=== PATIENT | male | born 1935 | race Caucasian/White ===

== ENCOUNTER → 2018-03-11 | Outpatient (CLI) | payer MEDICARE ==
[~2018-03-11] MED LIST: ALLO300T2 PO; ASPI-555 PO; FISH1CAP49 PO; HYDR-4060 PO; KEPRA PO; PRAV40TA3 PO; PRED10TA3 PO; PSYLLIUM PO; VITAMIN B COMPLEX PO; [UNRECOGNIZED DRUG - OTHER] PO; coq10 PO; iron PO; metoprolol er PO
== END | disposition home or self-care (01) ==
LOC: SHCH 07:55
PROVIDERS: ATTEND Internal Medicine Cardiovascular Disease
DX: I71.4 Abdominal aortic aneurysm, without rupture (principal); I70.1 Atherosclerosis of renal artery; K55.1 Chronic vascular disorders of intestine
CPT/HCPCS: 93975

== ENCOUNTER 2019-03-06 12:25 | Inpatient (IN) | payer MEDICARE, OTHER ==
[~2019-03-06] VITALS: Ht 175.3 cm; Wt 83.5 kg
[2019-03-06 12:57] LABS: APPEARANCE,URINE Clear (CLEAR); BILIRUBIN,URINE Negative (NEGATIVE); COLOR,URINE Yellow (YELLOW); GLUCOSE, URINE (UA) Negative (NEGATIVE); KETONES,URINE Negative (NEGATIVE); LEUKOCYTE ESTERASE ,URINE Negative (NEGATIVE); NITRATE,URINE Negative (NEGATIVE); OCCULT BLOOD,URINE Negative (NEGATIVE); PH,URINE 6.5 (5.0-8.0); PROTEIN,URINE POS 1+ mg/dL (NEGATIVE); UROBILINOGEN,URINE 0.2 mg/dL (0.2-1.0)
[2019-03-06 13:05] LABS: BASOPHILS % (AUTO) 0.6 % (0.0-5.0); EOSINOPHILS % (AUTO) 1.1 % (0.0-8.0); HEMATOCRIT 42.9 % (42-54); LYMPHOCYTES % (AUTO) 7.4 % (21.0-51.0); MEAN CORPUSCULAR HEMOGLOBIN 34.2 pg (27.0-33.0); MEAN CORPUSCULAR HGB CONC 33.7 g/dL (32.0-36.0); MEAN CORPUSCULAR VOLUME 101.4 fL (79-99); MONOCYTES % (AUTO) 12.4 % (3.0-13.0); NEUTROPHILS % (AUTO) 78.5 % (40.0-77.0); PLATELET COUNT (AUTO) 136 K/uL (130-400); RED BLOOD CELL COUNT(AUTO) 4.23 MIL/uL (4.50-6.20); RED CELL DISTRIBUTION WIDTH 15.4 % (11.0-15.5); WHITE BLOOD COUNT (AUTO) 19.1 K/uL (4.8-10.8)
[2019-03-06] MEDS ORDERED: SODIUM CHLORIDE 0.9% 1000ML 1,000 ML IV ONE (13:05)
[2019-03-06 13:22] LABS: PARTIAL THROMBOPLASTIN TIME 29.5 SEC (26.3-35.5); PROTHROMBIN TIME 10.5 SEC (9.6-11.6)
[2019-03-06 13:37] LABS: ALBUMIN 3.3 g/dL (3.5-5.0); BILIRUBIN,TOTAL 1.1 mg/dL (0.2-1.0); POTASSIUM 4.1 mmol/L (3.5-5.1); TOTAL PROTEIN, SERUM 7.7 g/dL (6.0-8.3)
[2019-03-06 14:29] LABS: BACTERIA,URINE Rare /HPF (None Seen); RBC,URINE 0-1 /HPF (0-1); SQUAMOUS EPITHELIAL CELL,UR Rare /HPF (0-2); WBC,URINE 0-1 /HPF (0-1)
[2019-03-06 14:30] LABS: CREATININE 1.7 mg/dL (0.5-1.5)
[2019-03-06] MEDS ORDERED: IOHEXOL-350 75 ML VIAL IV ONE (14:56)
[2019-03-06] MEDS ORDERED: HYOSCYAMINE SULFATE 0.125 MG TAB.SUBL SL ONE (15:18)
[2019-03-06] MEDS: CEFTRIAXONE SODIUM 1 GM IV SCH (16:00)
[2019-03-06] MEDS: METRONIDAZOLE 500MG/100ML BAG 100 ML IV SCH ×2 (16:00→23:29)
[2019-03-06] MEDS: LACTATED RINGERS 1000ML 1,000 ML IV SCH (16:15)
[2019-03-06] MEDS ORDERED: ENOXAPARIN SODIUM 40 MG/0.4 ML SYRINGE SQ ONE (16:30)
[2019-03-06] MEDS ORDERED: HYDROCODONE/ACETAMINOPHEN 5/325 MG TAB ONE (16:31)
[2019-03-06] MEDS ORDERED: METRONIDAZOLE 500MG/100ML BAG 100 ML ONE (16:31)
[2019-03-06] MEDS ORDERED: CEFTRIAXONE SODIUM 1 GM ONE (16:31)
[2019-03-06] MEDS ORDERED: LACTATED RINGERS 1000ML 1,000 ML IV ONE (16:32)
[2019-03-06] MEDS ORDERED: SODIUM CHLORIDE 0.9% 100 ML IV ONE (16:32)
[2019-03-06 17:40] VITALS: BP 158/88
--- NOTE | 2019-03-06 18:05 | NUR ---
REPORT RECEIVED FROM BRIGITTE ABREU (ED). PATIENT WITH C/O EPIGASTRIC PAIN FOR 2 DAYS. PATIENT ADMITTED UNDER DR. ACUÑA FOR BILIARY COLIC WITH POSSIBLE CHOLECYSTITIS. DR. DENNIS ON THE CASE AND MADE AWARE BY ER PHYSICIAN. ROCEPHIN AND FLAGYL STARTED IN ER. PATIENT AAOX4, STABLE AT THIS TIME.
[2019-03-06] MEDS: HYDROCODONE/ACETAMINOPHEN 5/325 MG TAB PO PRN (18:21)
[2019-03-06 20:00] VITALS: BP 142/76
[2019-03-06] MEDS ORDERED: AMLO10TA7 PO (20:28)
[2019-03-06 22:08] LABS: BASOPHILS % (AUTO) 0.7 % (0.0-5.0); EOSINOPHILS % (AUTO) 1.6 % (0.0-8.0); HEMATOCRIT 38.4 % (42-54); LYMPHOCYTES % (AUTO) 8.5 % (21.0-51.0); MEAN CORPUSCULAR HEMOGLOBIN 34.6 pg (27.0-33.0); MEAN CORPUSCULAR HGB CONC 34.3 g/dL (32.0-36.0); MEAN CORPUSCULAR VOLUME 100.6 fL (79-99); MONOCYTES % (AUTO) 12.3 % (3.0-13.0); NEUTROPHILS % (AUTO) 76.9 % (40.0-77.0); NUCLEATED RED BLOOD CELLS 0.1 % (0.0-0.19); PLATELET COUNT (AUTO) 118 K/uL (130-400); RED BLOOD CELL COUNT(AUTO) 3.82 MIL/uL (4.50-6.20); RED CELL DISTRIBUTION WIDTH 15.2 % (11.0-15.5); WHITE BLOOD COUNT (AUTO) 17.1 K/uL (4.8-10.8)
[2019-03-06 22:24] LABS: ALBUMIN 2.8 g/dL (3.5-5.0); BILIRUBIN,TOTAL 1.1 mg/dL (0.2-1.0); CREATININE 1.6 mg/dL (0.5-1.5); POTASSIUM 4.3 mmol/L (3.5-5.1); TOTAL PROTEIN, SERUM 6.4 g/dL (6.0-8.3)
[2019-03-06] MEDS: METOPROLOL TARTRATE 25 MG TAB PO SCH (23:32)
[2019-03-06] MEDS: ATORVASTATIN CALCIUM 10 MG TABLET PO SCH (23:32)
[2019-03-07 00:02] VITALS: BP 152/89
[2019-03-07] MEDS: HYDROCODONE/ACETAMINOPHEN 5/325 MG TAB PO PRN ×3 (00:26→19:54)
[2019-03-07] MEDS: CEFTRIAXONE SODIUM 1 GM IV SCH ×2 (02:49→16:06)
[2019-03-07] MEDS: LACTATED RINGERS 1000ML 1,000 ML IV SCH ×2 (02:50→18:55)
[2019-03-07 04:00] VITALS: BP 141/86
[2019-03-07] MEDS: METRONIDAZOLE 500MG/100ML BAG 100 ML IV SCH ×2 (04:52→16:05)
--- NOTE | 2019-03-07 07:51 | NUR ---
dr. fowler in to see pt. orders entered.
--- NOTE | 2019-03-07 07:54 | NUR ---
AM SHIFT ASSESSMENT. HIDA SCAN ORDERED, WILL KEEP PT. NPO.
[2019-03-07 08:00] VITALS: BP 150/90
[2019-03-07] MEDS: METOPROLOL TARTRATE 25 MG TAB PO SCH ×2 (09:00→19:53)
[2019-03-07] MEDS: AMLODIPINE BESYLATE 5 MG TAB PO SCH (09:00)
[2019-03-07] MEDS: ALLOPURINOL 300 MG TABLET PO SCH (09:00)
[2019-03-07] MEDS: ENOXAPARIN SODIUM 40 MG/0.4 ML SYRINGE SQ SCH (09:00)
[2019-03-07] MEDS: FAMOTIDINE 20MG TAB 20 MG TAB PO SCH (09:00)
[2019-03-07 11:45] VITALS: BP 141/73
[2019-03-07] MEDS ORDERED: DEXTROSE 5 % AND 0.9 % NACL 1,000 ML IV ONE (12:33)
--- NOTE | 2019-03-07 16:07 | NUR ---
DCP CM met with pt discussed dc plans. Pt is independent prior to admission, lives at home with a friend Adelaide Noonan. Denies any equipments/services. Feels safe to go back home, still drives, arranges own needs, verbalized friend Adelaide able to assist with transportation and needs as necessary. DC plan to home once stable. CM to cont to follow up. Addendum: 03/07/19 at 1609 by TESS SAMAYOA LVN CM Amended: Links added.
--- NOTE | 2019-03-07 16:08 | NUR ---
TO RAD. DEPT NOW VIA W/C FOR HIDA SCAN
[2019-03-07 16:12] VITALS: BP 117/63
--- NOTE | 2019-03-07 18:00 | NUR ---
BACK ROM RAD.DEPT. WILL WAIT FOR HIDA SCAN REPORT.
--- NOTE | 2019-03-07 19:00 | NUR ---
DR. ACUÑA HERE, STATES TO FEED PT. NOW AND NPO AT [place]. NOTIFY DR. SONNY ALLEN RESULTS.
[2019-03-07] MEDS: ATORVASTATIN CALCIUM 10 MG TABLET PO SCH (19:53)
[2019-03-07 20:00] VITALS: BP 143/88
[2019-03-08] VITALS: BP 125/72
[2019-03-08] MEDS: METRONIDAZOLE 500MG/100ML BAG 100 ML IV SCH ×3 (00:09→17:01)
[2019-03-08] MEDS ORDERED: DEXTROSE 5 % AND 0.9 % NACL 1,000 ML IV ONE (00:09)
--- NOTE | 2019-03-08 00:15 | NUR ---
patient saturating at 91% room air. oxygen via nasal cannula is offered and he refuses it.
[2019-03-08] MEDS: CEFTRIAXONE SODIUM 1 GM IV SCH ×2 (03:03→17:00)
[2019-03-08] MEDS ORDERED: DEXTROSE 5 % AND 0.9 % NACL 1,000 ML IV SCH (03:15)
[2019-03-08] MEDS: HYDROCODONE/ACETAMINOPHEN 5/325 MG TAB PO PRN ×3 (03:16→19:50)
[2019-03-08 04:00] VITALS: BP 137/68
[2019-03-08 05:14] LABS: HEMATOCRIT 35.2 % (42-54); MEAN CORPUSCULAR HGB CONC 33.9 g/dL (32.0-36.0); MEAN CORPUSCULAR VOLUME 100.2 fL (79-99); PLATELET COUNT (AUTO) 124 K/uL (130-400); RED BLOOD CELL COUNT(AUTO) 3.51 MIL/uL (4.50-6.20); RED CELL DISTRIBUTION WIDTH 15.1 % (11.0-15.5); WHITE BLOOD COUNT (AUTO) 15.6 K/uL (4.8-10.8)
[2019-03-08 05:27] LABS: ALBUMIN 2.4 g/dL (3.5-5.0); BILIRUBIN,TOTAL 0.5 mg/dL (0.2-1.0); CREATININE 1.8 mg/dL (0.5-1.5); EOSINOPHILS % (MANUAL) 2 % (1-6); LYMPHOCYTES % (MANUAL) 6 % (22-44); MONOCYTES % (MANUAL) 2 % (2-9); POTASSIUM 4.1 mmol/L (3.5-5.1); SEGMENTED NEUTROPHILS % 90 % (40-70)
[2019-03-08 05:28] LABS: MAN.DIFF COMMENT-IMPRESSION MANUAL DIFFERENTIAL; PLATELET MORPHOLOGY COMMENT ADEQUATE
[2019-03-08 07:47] VITALS: BP 163/99
--- NOTE | 2019-03-08 08:30 | NUR ---
Paged Dr. Prado to notify of patient's request to speak with her. Per Yaz, no surgery planned. Notified patient that she would be by after clinic.
[2019-03-08] MEDS: ALLOPURINOL 300 MG TABLET PO SCH (08:57)
[2019-03-08] MEDS: FAMOTIDINE 20MG TAB 20 MG TAB PO SCH (08:58)
[2019-03-08] MEDS: AMLODIPINE BESYLATE 5 MG TAB PO SCH (08:58)
[2019-03-08] MEDS: METOPROLOL TARTRATE 25 MG TAB PO SCH ×2 (08:58→19:50)
[2019-03-08] MEDS: ENOXAPARIN SODIUM 40 MG/0.4 ML SYRINGE SQ SCH (08:59)
[2019-03-08 12:54] VITALS: BP 126/85
[2019-03-08] MEDS ORDERED: LEVO500T89 PO (14:32)
[2019-03-08] MEDS ORDERED: METR500T PO (14:32)
[2019-03-08 16:01] VITALS: BP 148/68
--- NOTE | 2019-03-08 19:15 | NUR ---
Patient reported moderate pain to abdomen, such as before after eating regular diet. Dr. Mukherjee discussed treatment plan with patient and recommended patient stay overnight and prepare for possible laparoscopic cholecystectomy 03/09/18 at 14:00. Paged hospitalist on-call to notify of Dr. Mukherjee's recommendation.
[2019-03-08] MEDS: ATORVASTATIN CALCIUM 10 MG TABLET PO SCH (19:50)
[2019-03-08 20:00] VITALS: BP 134/78
[2019-03-08] MEDS ORDERED: DEXTROSE 5%-LACTATED RINGERS 1,000 ML IV SCH (20:30)
[2019-03-09] VITALS (24 sets, daily range): BP systolic 103–156; BP diastolic 60–86
[2019-03-09] MEDS: METRONIDAZOLE 500MG/100ML BAG 100 ML IV SCH ×4 (00:16→23:03)
[2019-03-09] MEDS: HYDROCODONE/ACETAMINOPHEN 5/325 MG TAB PO PRN ×3 (00:46→09:10)
[2019-03-09 04:40] LABS: MEAN CORPUSCULAR HEMOGLOBIN 34.3 pg (27.0-33.0); MEAN CORPUSCULAR HGB CONC 33.9 g/dL (32.0-36.0); PLATELET COUNT (AUTO) 119 K/uL (130-400); RED BLOOD CELL COUNT(AUTO) 3.46 MIL/uL (4.50-6.20); RED CELL DISTRIBUTION WIDTH 15.7 % (11.0-15.5); WHITE BLOOD COUNT (AUTO) 12.4 K/uL (4.8-10.8)
[2019-03-09 04:53] LABS: ALBUMIN 2.3 g/dL (3.5-5.0); BILIRUBIN,TOTAL 0.5 mg/dL (0.2-1.0); CREATININE 1.5 mg/dL (0.5-1.5); TOTAL PROTEIN, SERUM 5.8 g/dL (6.0-8.3)
[2019-03-09 04:54] LABS: LYMPHOCYTES % (MANUAL) 11 % (22-44); MONOCYTES % (MANUAL) 10 % (2-9); SEGMENTED NEUTROPHILS % 79 % (40-70)
[2019-03-09 04:55] LABS: MAN.DIFF COMMENT-IMPRESSION MANUAL DIFFERENTIAL; PLATELET MORPHOLOGY COMMENT ADEQUATE
[2019-03-09] MEDS: CEFTRIAXONE SODIUM 1 GM IV SCH ×2 (05:05→17:04)
[2019-03-09] MEDS: ENOXAPARIN SODIUM 40 MG/0.4 ML SYRINGE SQ SCH (09:00)
[2019-03-09] MEDS: METOPROLOL TARTRATE 25 MG TAB PO SCH ×2 (09:08→20:20)
[2019-03-09] MEDS: ALLOPURINOL 300 MG TABLET PO SCH (09:08)
[2019-03-09] MEDS: AMLODIPINE BESYLATE 5 MG TAB PO SCH (09:08)
[2019-03-09] MEDS: FAMOTIDINE 20MG TAB 20 MG TAB PO SCH (09:09)
[2019-03-09] MEDS ORDERED: LACTULOSE 20 GM/30 ML UDCUP PO PRN (11:15)
[2019-03-09] MEDS ORDERED: LACTATED RINGERS 1000ML 1,000 ML IV ONE (13:01)
[2019-03-09] MEDS ORDERED: MIDAZOLAM HCL 1 MG/ML 2ML VIAL ONE (14:18)
[2019-03-09] MEDS ORDERED: LIDOCAINE PF 2% 5ML ABBOJECT ONE (14:18)
[2019-03-09] MEDS ORDERED: NEOSTIGMINE 5MG/5ML SYR IV ONE (14:18)
[2019-03-09] MEDS ORDERED: DEXAMETHASONE SOD PHOSPHATE 10MG/ML 1ML VIAL ONE (14:18)
[2019-03-09] MEDS ORDERED: SUCCINYLCHOLINE 200MG/10ML SYR ONE (14:18)
[2019-03-09] MEDS ORDERED: GLYCOPYRROLATE 1 MG/5 ML SYRINGE ONE (14:18)
[2019-03-09] MEDS ORDERED: PROPOFOL 10 MG/ML 20ML VIAL IV ONE (14:18)
[2019-03-09] MEDS ORDERED: ONDANSETRON HCL 4 MG/2 ML VIAL ONE (14:19)
[2019-03-09] MEDS ORDERED: ROCURONIUM 10MG/1ML SYR 10 MG/ML ML ONE (14:19)
[2019-03-09] MEDS ORDERED: FENTANYL CITRATE PF 50 MCG/1 ML 2ML VIAL ONE (14:19)
[2019-03-09] MEDS ORDERED: BUPIVACAINE/PF 0.5% 30ML VIAL ONE (15:00)
[2019-03-09] MEDS ORDERED: MORPHINE SULFATE 4 MG/1ML SYG IV PRN (15:30)
[2019-03-09] MEDS ORDERED: ONDANSETRON HCL 4 MG/2 ML VIAL IVP PRN (15:30)
--- NOTE | 2019-03-09 16:35 | NUR ---
REceived report from Dillon Rutledge RN in PACU. Patient received lapchole, dressing clean and dry. Reported vitals BP 144/79, T97.5. sinus rhythm 82, 92-94% O2 Sat at 2.5 L
[2019-03-09] MEDS: SODIUM CHLORIDE 0.9% 1000ML 1,000 ML IV SCH (17:17)
[2019-03-09] MEDS: TRAMADOL HCL 50 MG TABLET PO PRN (20:20)
[2019-03-09] MEDS: ATORVASTATIN CALCIUM 10 MG TABLET PO SCH (20:20)
[2019-03-10 00:09] VITALS: BP 131/71
[2019-03-10] MEDS: CEFTRIAXONE SODIUM 1 GM IV SCH ×2 (02:59→17:43)
[2019-03-10] MEDS: SODIUM CHLORIDE 0.9% 1000ML 1,000 ML IV SCH (02:59)
[2019-03-10] MEDS: HYDROCODONE/ACETAMINOPHEN 5/325 MG TAB PO PRN (03:26)
[2019-03-10 03:56] VITALS: BP 125/72
[2019-03-10 05:24] LABS: BASOPHILS % (AUTO) 0.2 % (0.0-5.0); HEMATOCRIT 36.6 % (42-54); LYMPHOCYTES % (AUTO) 3.2 % (21.0-51.0); MEAN CORPUSCULAR HEMOGLOBIN 34.6 pg (27.0-33.0); MEAN CORPUSCULAR HGB CONC 34.3 g/dL (32.0-36.0); MEAN CORPUSCULAR VOLUME 101.1 fL (79-99); MONOCYTES % (AUTO) 4.5 % (3.0-13.0); NEUTROPHILS % (AUTO) 92.1 % (40.0-77.0); PLATELET COUNT (AUTO) 116 K/uL (130-400); RED BLOOD CELL COUNT(AUTO) 3.62 MIL/uL (4.50-6.20); RED CELL DISTRIBUTION WIDTH 15.2 % (11.0-15.5); WHITE BLOOD COUNT (AUTO) 12.4 K/uL (4.8-10.8)
[2019-03-10] MEDS: METRONIDAZOLE 500MG/100ML BAG 100 ML IV SCH ×3 (05:38→23:45)
[2019-03-10 05:42] LABS: ALBUMIN 2.3 g/dL (3.5-5.0); BILIRUBIN,TOTAL 0.3 mg/dL (0.2-1.0); CREATININE 1.6 mg/dL (0.5-1.5); POTASSIUM 4.7 mmol/L (3.5-5.1); TOTAL PROTEIN, SERUM 6.1 g/dL (6.0-8.3)
[2019-03-10 07:47] VITALS: BP 112/67
[2019-03-10] MEDS: METOPROLOL TARTRATE 25 MG TAB PO SCH ×2 (09:55→20:47)
[2019-03-10] MEDS: FAMOTIDINE 20MG TAB 20 MG TAB PO SCH (09:56)
[2019-03-10] MEDS: ALLOPURINOL 300 MG TABLET PO SCH (09:56)
[2019-03-10] MEDS: AMLODIPINE BESYLATE 5 MG TAB PO SCH (09:56)
[2019-03-10] MEDS: ENOXAPARIN SODIUM 40 MG/0.4 ML SYRINGE SQ SCH (09:58)
[2019-03-10 12:00] VITALS: BP 117/63
[2019-03-10] MEDS ORDERED: FUROSEMIDE 10 MG/ML 2ML VIAL IV SCH (12:15)
[2019-03-10 16:00] VITALS: BP 117/73
[2019-03-10 18:03] LABS: ABG BASE EXCESS -0.3 mmol/L (-2.0-3.0); ABG HCO3 23.5 mmol/L (21.0-28.0); ABG OXYGEN SATURATION 96.4 % (95.0-99.0); ABG PCO2 36 mmHg (35-48)
[2019-03-10] MEDS: IPRATROPIUM/ALBUTEROL SULFATE 3 ML SOLUTION IH SCH ×2 (18:18→23:09)
[2019-03-10 19:56] VITALS: BP 117/79
[2019-03-10] MEDS: ATORVASTATIN CALCIUM 10 MG TABLET PO SCH (20:47)
[2019-03-10 23:02] LABS: CREATININE 1.7 mg/dL (0.5-1.5); POTASSIUM 4.3 mmol/L (3.5-5.1)
[2019-03-11 00:20] VITALS: BP 117/73
[2019-03-11] MEDS: CEFTRIAXONE SODIUM 1 GM IV SCH ×2 (03:20→17:17)
[2019-03-11 03:43] VITALS: BP 124/70
[2019-03-11 05:16] LABS: BASOPHILS % (AUTO) 0.3 % (0.0-5.0); EOSINOPHILS % (AUTO) 0.3 % (0.0-8.0); HEMATOCRIT 34.3 % (42-54); MEAN CORPUSCULAR HEMOGLOBIN 34.1 pg (27.0-33.0); MEAN CORPUSCULAR VOLUME 100.2 fL (79-99); MONOCYTES % (AUTO) 6.9 % (3.0-13.0); NEUTROPHILS % (AUTO) 88.5 % (40.0-77.0); PLATELET COUNT (AUTO) 154 K/uL (130-400); RED BLOOD CELL COUNT(AUTO) 3.42 MIL/uL (4.50-6.20); RED CELL DISTRIBUTION WIDTH 14.8 % (11.0-15.5); WHITE BLOOD COUNT (AUTO) 20.6 K/uL (4.8-10.8)
[2019-03-11 05:29] LABS: CREATININE 1.6 mg/dL (0.5-1.5); MAGNESIUM 1.9 mg/dL (1.80-2.40)
[2019-03-11] MEDS: METRONIDAZOLE 500MG/100ML BAG 100 ML IV SCH ×2 (05:32→09:45)
[2019-03-11 05:51] LABS: B-TYPE NATRIURETIC PEPTIDE 255 pg/mL (0-100)
[2019-03-11] MEDS: IPRATROPIUM/ALBUTEROL SULFATE 3 ML SOLUTION IH SCH ×4 (06:39→23:22)
[2019-03-11 08:00] VITALS: BP 112/85
[2019-03-11] MEDS ORDERED: MAGNESIUM HYDROXIDE 30 ML/UDCUP PO SCH (09:15)
[2019-03-11] MEDS: FAMOTIDINE 20MG TAB 20 MG TAB PO SCH (09:46)
[2019-03-11] MEDS: AMLODIPINE BESYLATE 5 MG TAB PO SCH (09:46)
[2019-03-11] MEDS: ALLOPURINOL 300 MG TABLET PO SCH (09:46)
[2019-03-11] MEDS: METOPROLOL TARTRATE 25 MG TAB PO SCH ×2 (09:46→21:37)
[2019-03-11] MEDS: ENOXAPARIN SODIUM 40 MG/0.4 ML SYRINGE SQ SCH (09:47)
[2019-03-11 12:00] VITALS: BP 131/66
[2019-03-11] MEDS: LACTULOSE 20 GM/30 ML UDCUP PO PRN (15:18)
--- NOTE | 2019-03-11 15:57 | NUR ---
HOME OXYGEN CM spoke to patient regarding home oxygen needs. Explained that evaluation performed and now needing to be discharged with oxygen. CM notified patient that [facility] is in network provider for o2. Verbalized understanding. CM obtained consent for referral. CM to fax referral and follow up.
[2019-03-11 16:00] VITALS: BP 120/60
[2019-03-11 19:45] VITALS: BP 122/85
[2019-03-11] MEDS: ATORVASTATIN CALCIUM 10 MG TABLET PO SCH (21:37)
[2019-03-12] VITALS: BP 133/80
[2019-03-12 04:00] VITALS: BP 126/76
[2019-03-12] MEDS: CEFTRIAXONE SODIUM 1 GM IV SCH ×2 (04:15→15:54)
[2019-03-12] MEDS: LACTULOSE 20 GM/30 ML UDCUP PO PRN (04:41)
[2019-03-12 04:58] LABS: HEMATOCRIT 39.7 % (42-54); MEAN CORPUSCULAR HEMOGLOBIN 34.3 pg (27.0-33.0); NUCLEATED RED BLOOD CELLS 0.1 % (0.0-0.19); PLATELET COUNT (AUTO) 157 K/uL (130-400); RED BLOOD CELL COUNT(AUTO) 3.93 MIL/uL (4.50-6.20); RED CELL DISTRIBUTION WIDTH 15.4 % (11.0-15.5); WHITE BLOOD COUNT (AUTO) 17.5 K/uL (4.8-10.8)
[2019-03-12 05:06] LABS: EOSINOPHILS % (MANUAL) 5 % (1-6); LYMPHOCYTES % (MANUAL) 12 % (22-44); MAN.DIFF COMMENT-IMPRESSION MANUAL DIFFERENTIAL; MONOCYTES % (MANUAL) 10 % (2-9); PLATELET MORPHOLOGY COMMENT ADEQUATE; SEGMENTED NEUTROPHILS % 73 % (40-70)
[2019-03-12 05:11] LABS: CREATININE 1.5 mg/dL (0.5-1.5); POTASSIUM 4.3 mmol/L (3.5-5.1)
[2019-03-12] MEDS: IPRATROPIUM/ALBUTEROL SULFATE 3 ML SOLUTION IH SCH ×3 (06:00→18:00)
[2019-03-12 08:00] VITALS: BP 140/76
[2019-03-12] MEDS: ALLOPURINOL 300 MG TABLET PO SCH (08:02)
[2019-03-12] MEDS: METOPROLOL TARTRATE 25 MG TAB PO SCH ×2 (08:02→21:54)
[2019-03-12] MEDS: FAMOTIDINE 20MG TAB 20 MG TAB PO SCH (08:03)
[2019-03-12] MEDS: AMLODIPINE BESYLATE 5 MG TAB PO SCH (08:08)
[2019-03-12] MEDS: TRAMADOL HCL 50 MG TABLET PO PRN ×2 (08:09→15:54)
[2019-03-12 11:58] VITALS: BP 135/66
[2019-03-12] MEDS: ENOXAPARIN SODIUM 40 MG/0.4 ML SYRINGE SQ SCH (15:55)
[2019-03-12 16:00] VITALS: BP 121/73
[2019-03-12] MEDS ORDERED: MAGNESIUM HYDROXIDE 30 ML/UDCUP PO SCH (16:30)
[2019-03-12 20:00] VITALS: BP 135/78
[2019-03-12] MEDS: ATORVASTATIN CALCIUM 10 MG TABLET PO SCH (21:54)
[2019-03-13] VITALS (7 sets, daily range): BP systolic 125–140; BP diastolic 69–80
[2019-03-13] MEDS: CEFTRIAXONE SODIUM 1 GM IV SCH ×2 (03:49→15:40)
[2019-03-13] MEDS: TRAMADOL HCL 50 MG TABLET PO PRN (05:38)
[2019-03-13 05:47] LABS: MEAN CORPUSCULAR HEMOGLOBIN 34.3 pg (27.0-33.0); MEAN CORPUSCULAR VOLUME 100.9 fL (79-99); NUCLEATED RED BLOOD CELLS 0.1 % (0.0-0.19); PLATELET COUNT (AUTO) 142 K/uL (130-400); RED BLOOD CELL COUNT(AUTO) 3.67 MIL/uL (4.50-6.20); RED CELL DISTRIBUTION WIDTH 15.2 % (11.0-15.5); WHITE BLOOD COUNT (AUTO) 12.2 K/uL (4.8-10.8)
[2019-03-13] MEDS: IPRATROPIUM/ALBUTEROL SULFATE 3 ML SOLUTION IH SCH ×4 (06:00→23:59)
[2019-03-13 08:30] LABS: EOSINOPHILS % (MANUAL) 5 % (1-6); LYMPHOCYTES % (MANUAL) 9 % (22-44); MAN.DIFF COMMENT-IMPRESSION MANUAL DIFFERENTIAL; MONOCYTES % (MANUAL) 9 % (2-9); PLATELET MORPHOLOGY COMMENT ADEQUATE; SEGMENTED NEUTROPHILS % 77 % (40-70)
[2019-03-13] MEDS: FAMOTIDINE 20MG TAB 20 MG TAB PO SCH (09:54)
[2019-03-13] MEDS: AMLODIPINE BESYLATE 5 MG TAB PO SCH (09:55)
[2019-03-13] MEDS: METOPROLOL TARTRATE 25 MG TAB PO SCH ×2 (09:55→21:13)
[2019-03-13] MEDS: ALLOPURINOL 300 MG TABLET PO SCH (09:56)
[2019-03-13] MEDS: ENOXAPARIN SODIUM 40 MG/0.4 ML SYRINGE SQ SCH (10:00)
--- NOTE | 2019-03-13 12:22 | NUR ---
CM Note: [facility] pending approval and delivery for O2 CM spoke to Teresa gupta/[facility] . Received script and clinicals yesterday, currently working on approval. Aware dcp once equipments delivered. Pt pending approval and delivery for oxygen portable and stationary. Primary nurse aware. CM to cont to follow up.
--- NOTE | 2019-03-13 12:55 | NUR ---
NUTRITION EDUCATION AMBER provided Cholecystectomy, Low Fat Nutrition education to Pt and Pt's . AMBER reviewed reference materials with Pt. Pt with multiple questions. RD answered all questions. Pt verbalized understanding. AMBER encouraged Pt to notify as additional questions or concerns arise. Addendum: 03/13/19 at [address] Amended: Links added.
--- NOTE | 2019-03-13 13:05 | NUR ---
RDSCREEN - LOS X 7 Pt s/p Cholecystectomy, POD #4. RD provided Cholecystectomy nutrition education. Pt tolerating Regular diet order with no report of GI distress, PO intake at 75-100% as per Pt. Recommend to add Low fat diet modifier secondary to cholecystectomy. Pt LBM 03/13. Pt monitored labs: BUN 27, GFR 48, BNP 255, Alb 2.3. RD to continue to monitor. Please notify RD as additional nutrition concerns arise. Thank you. Addendum: 03/13/19 at [address] Amended: Links added.
--- NOTE | 2019-03-13 14:26 | NUR ---
CM Note: [facility] pending approval and delivery of O2 CM spoke to Michelle gupta/[facility], stated still working on approval and delivery for O2. Aware dc today, once portable O2 is delivered in pt's room. Pt pending approval and delivery for portable O2 and stationary. Primary nurse aware. CM to cont to follow up.
--- NOTE | 2019-03-13 19:46 | NUR ---
UNABLE TO D/C PT HOME, NO 02 TANK DELIVERED
[2019-03-13] MEDS: LACTULOSE 20 GM/30 ML UDCUP PO PRN (21:13)
[2019-03-13] MEDS: ATORVASTATIN CALCIUM 10 MG TABLET PO SCH (21:13)
[2019-03-14 03:00] VITALS: BP 130/74
[2019-03-14] MEDS: CEFTRIAXONE SODIUM 1 GM IV SCH (05:11)
[2019-03-14 07:58] VITALS: BP 129/77
[2019-03-14] MEDS: FAMOTIDINE 20MG TAB 20 MG TAB PO SCH (08:49)
[2019-03-14] MEDS: ALLOPURINOL 300 MG TABLET PO SCH (08:49)
[2019-03-14] MEDS: METOPROLOL TARTRATE 25 MG TAB PO SCH (08:49)
[2019-03-14] MEDS: AMLODIPINE BESYLATE 5 MG TAB PO SCH (08:49)
[2019-03-14] MEDS: ENOXAPARIN SODIUM 40 MG/0.4 ML SYRINGE SQ SCH (08:53)
--- NOTE | 2019-03-14 10:19 | NUR ---
CM Note: [facility] pending to delivery O2 CM spoke to Michelle gupta/[facility], stated she is looking at request have everything, but pt might need another O2 eval done. Informed Michelle eval was done on 03/11, script and clinicals was sent 03/12. Informed Luisa ALICEA spoke to her yesterday and was told she will forward request to be escalated so that equipments can be delivered yesterday, she is aware pt has DC order yesterday once O2 was delivered. Today she is again saying she has script,clinicals, and will forward to escalade so that it can be expedited, rep verbalized pt will need new O2 eval for today. Informed rep was not told pt needed a new O2 eval yesterday. CM asked for a supervisor treating and pumping. As per Luisa tried to called supervisor treating and pumping Marga but is not answering, rep emailed and waiting for response. Stated will have equipments delivered today rep asked again for pt room number, given room#[id number] again. Primary nurse aware pending O2 delivery. CM to cont to follow up. CM spoke to Carla gupta/[facility] . Made aware of request since 03/12, as per Kylah he was not aware what happened over the weekend and yesterday. Verbalized the rep should have asked for repeat O2 eval since yesterday afternoon. Requested recent O2. Faxed O2 eval for today, confirmation received. As per Kylah will have O2 delivered around noon. Primary nurse aware. CM to cont to follow up.
[2019-03-14 11:08] VITALS: BP 115/74
--- NOTE | 2019-03-14 13:00 | NUR ---
CM Note: [facility] delivered portable O2 in pt room CM verified, portable O2 delivered in pt's room. Pt will coordinate w/[facility] once home for stationary O2 to be delivered at home. Pt safe to dc via private car. Primary nurse aware. CM to cont to follow up.
--- NOTE | 2019-03-14 14:45 | NUR ---
PT DISCHARGE SUMMARY REVIEW .WITH PT . SL TO HIS RFA, WAS DC, WITH NO REDNESS TO SITE. OXYGEN WAS BROUGHT IN FOR HOME ,USE, APPT TO FOLLOW WAS ALSO REVIEW, DENIES ANY SOB .MICHAEL PAINTER FROM HIS SURGERY BOWEL SOUND PRESENT , WILL FOLLOW WITH DR DENNIS , AND DR. PANTOJA, AND PRIVATE ORDER .
== END 2019-03-14 15:00 | disposition home or self-care (01) | DRG 417 ==
LOC: EDH 12:25 → EDHIP 15:54 → 3BH 17:11
PROVIDERS: ADMIT Internal Medicine; ATTEND Internal Medicine
PROC: 0FT44ZZ Resection of Gallbladder, Percutaneous Endoscopic Approach (ICD-10-PCS; principal; 2019-03-09 14:35)
DX: K80.62 Calculus of gallbladder and bile duct with acute cholecystitis without obstruction (principal); J96.01 Acute respiratory failure with hypoxia; D72.825 Bandemia; E78.5 Hyperlipidemia, unspecified; M19.90 Unspecified osteoarthritis, unspecified site; I12.9 Hypertensive chronic kidney disease with stage 1 through stage 4 chronic kidney disease, or unspecified chronic kidney disease; N18.9 Chronic kidney disease, unspecified; F17.200 Nicotine dependence, unspecified, uncomplicated; J44.9 Chronic obstructive pulmonary disease, unspecified; Z80.8 Family history of malignant neoplasm of other organs or systems; Z82.49 Family history of ischemic heart disease and other diseases of the circulatory system; Z87.01 Personal history of pneumonia (recurrent); Z95.2 Presence of prosthetic heart valve; Z88.0 Allergy status to penicillin
CPT/HCPCS: 36415; 36600; 71045; 76705; 78226; 78580; 80048; 80053; 81001; 82550; 82803; 83690; 83735; 83880; 84145; 84484; 85025; 85610; 85730; 87071; 87205; 87804; 93005; 93970; 94640; 94664; 94760; A9537; A9540; G0378; J0330; J0696; J1100; J1650; J1940; J2001; J2250; J2405; J2704; J2710; J3010; J3490; J7030; J7042; J7120; Q9967